=== PATIENT | male | born 1960 | race Caucasian/White ===

== ENCOUNTER 2020-04-22 15:12 | Emergency (ER) | payer MEDICARE, SELFPAY ==
[2020-04-22 15:14] VITALS: BP 133/92; PULSE 82; RESP 20; TEMP 37.3; O2SAT 98; BMI 44.6
--- NOTE | 2020-04-22 15:30 | XRR_ITS ---
PROCEDURE INFORMATION: Exam: XR Chest, 1 View Exam date and time: 04/22/2020 4:22 PM Age: 60 years old Clinical indication: Dyspnea and shortness of breath; Patient HX: C/O dyspnea, short of breath. HX of copd; Additional info: SOB TECHNIQUE: Imaging protocol: XR of the chest Views: 1 view. COMPARISON: No relevant prior studies available. FINDINGS: Lungs: No consolidative pulmonary infiltrate noted. Pleural space: No pleural effusion. No pneumothorax. Heart/Mediastinum: Mild cardiomegaly is noted. Bones/joints: Mild degenerative thoracic spine changes are noted. XR/XR chest 1V portable [id number] IMPRESSION: 1. Mild cardiomegaly is noted. 2. No consolidative pulmonary infiltrate noted. 3. No acute abnormality demonstrated.
--- NOTE | 2020-04-22 15:30 | ECG_ITS ---
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 Measurements Intervals [place] Rate: 75 P: 71 TN: 151 QRS: 85 QRSD: 86 T: 49 QT: 342 QTc: 383 Interpretive Statements SINUS RHYTHM POSSIBLE RIGHT VENTRICULAR CONDUCTION DELAY [RSR (QR) IN V1/V2] No previous ECG available for comparison Electronically Signed On 04-22-2020 22:23:52 ART HANDLER by Galilea Myers M.D. [id number]
--- NOTE | 2020-04-22 15:42 | W.ED.SOB ---
HPI - SOB/Dyspnea General: Chief Complaint: Shortness of Breath/Dyspnea Stated Complaint: SOB Time Seen by Provider: 04/22/20 15:31 Source: patient Mode of arrival: ambulatory Limitations: no limitations History of Present Illness: HPI Narrative: 60-year-old male with a history of COPD states he been having shortness of breath. Patient was sent here by his PCP from the clinic. He is on 5 L at home at baseline. He received a breathing treatment in route and states he feels back to baseline and has no complaints at this time. No known sick contacts. Denies any fever. He states that his nebulizer machine is broken at home. Associated symptoms: Deny abdominal pain, chest pain, fever(s), nausea or vomiting Review of Systems Const: Denies: fever(s), chills, body aches or change in appetite Eyes: Denies: blurry vision or eye discomfort ENMT: Denies: throat pain or dental pain Card: Denies: chest pain Resp: Reports: dyspnea GI: Denies: abdominal pain, nausea, vomiting or diarrhea : Denies: dysuria Musc: Denies: neck pain or back pain Skin/Breast: Denies: rash Neuro: Denies: headache(s) Psych: Denies: depression Michael/Lymph: Denies: easy bruising All/Imm: Denies: urticaria Physical Exam Const: COMMON NORMALS: no acute distress and patient oriented x3 GENERAL APPEARANCE: disheveled HENMT: COMMON NORMALS: normocephalic and atraumatic HEAD & SCALP: normocephalic and atraumatic Eye: COMMON NORMALS: Equal, round and reactive pupils present and EOMs intact bilaterally PUPIL: Yes Equal, round and reactive pupils present Neck/C-Spine: COMMON NORMALS: full ROM and supple Chest: COMMONS NORMALS: normal inspection of the chest and normal palpation of entire chest wall Resp: COMMON NORMALS: normal respiratory effort, No retractions and No use of accessory muscles AUSCULTATION: wheezes Cardio: COMMON NORMALS: regular rate, regular rhythm and No murmurs present (Cardio) RATE: regular rate RHYTHM: regular rhythm GI: COMMON NORMALS: Normal to inspection, nondistended, normoactive bowel sounds present, Soft to palpation, non-tender and no masses PALPATION: Yes Soft to palpation Extremity: COMMON NORMALS: normal to inspection and full ROM Neuro: COMMON NORMALS: patient oriented x3, moves all extremities and no focal motor deficits Psych: COMMON NORMALS: mental status grossly normal, Normal thought process present and cooperative THOUGHT PROCESS: Normal thought process present Skin: COMMON NORMALS: no rashes or lesions noted and no wounds GENERAL SKIN EXAM: no rashes or lesions noted Course Vital Signs: Vital signs: Vital Signs Temperature 99.1 F 04/22/20 15:14 Pulse Rate 88 04/22/20 16:06 Respiratory Rate 20 H 04/22/20 15:14 Blood Pressure 133/92 04/22/20 15:14 Pulse Oximetry 96 04/22/20 16:06 MDM - SOB/Dyspnea MDM Narrative: Medical decision making narrative: Patient presents with dyspnea that is chronic in nature. Patient's x-ray here is negative and his Covid and flu is negative as well. He felt much improved after breathing treatments. I informed him he needs to the prescription for a new breathing treatment machine from his PCP and I will write him for albuterol along with steroids. He is to follow-up with PCP and return if worsening. He understands and agrees to plan. Lab Data: Labs: Lab Results 04/22/20 04/22/20 04/22/20 Range/Units 16:02 16:02 16:25 WBC 12.6 H (4.0-10.0) 10^3/ uL RBC 4.13 (4.1-5.3) 10^6/u L Hgb 13.1 (11.7-16.6) g/dL Hct 42.7 (42.0-52.0) % MCV 103.4 H (80-94) fL MCH 31.7 (28.0-34.0) pg MCHC 30.7 (30.0-36.0) g/dL RDW 12.6 (12.1-15.1) % Plt Count 180 (130-400) 10^3/c mm MPV 10.6 H (7.4-10.4) fL Neut % (Auto) 76.8 % Lymph % (Auto) 15.0 % [place] % (Auto) 5.0 % Eos % (Auto) 2.6 % Baso % (Auto) 0.2 % Neut # (Auto) 9.68 H (1.8-7.7) 10^3/u L Lymph # (Auto) 1.9 (0.8-4.8) 10^3/u L [place] # (Auto) 0.6 (0.2-0.9) 10^3/u L Eos # (Auto) 0.3 (0.0-0.8) 10^3/u L Baso # (Auto) 0.0 (0.0-0.1) 10^3/u L Nucleated RBC % (a uto) 0 % Nucleated RBCs # 0.0 /100WBC Sodium 140 (136-145) mmol/L Potassium 5.0 (3.5-5.1) mmol/L Chloride 88 L (98-107) mmol/L Carbon Dioxide 43 H* (22-29) mmol/L Anion Gap 14.0 (5-19) BUN 18 (6-20) mg/dL Creatinine 0.8 (0.7-1.2) mg/dL GFR Calculation 99.3 (90-130) mL/min Glucose 157 H (65-115) mg/dL Calculated Osmolal ity 295 (285-295) mOsm/k g Lactic Acid 1.2 (0.5-2.2) mmol/L Calcium 10.0 (8.5-10.5) mg/dL Total Bilirubin 0.2 (0.15-1.2) mg/dL AST 21 (0-40) U/L ALT 29 (0-41) U/L Alkaline Phosphata se 103 (40-130) IU/L C-Reactive Protein 15.6 H (0.0-4.9) mg/L NT-Pro-B Natriuret Pep 5 (0-125) pg/mL Total Protein 8.3 (6.6-8.7) g/dL Albumin 4.6 (3.5-5.2) g/dL Globulin 3.7 (1.3-4.6) g/dL Influenza Type A A g (Negative) Influenza Type B A g (Negative) SARS-CoV-2 Ag (Rap id) (Negative) 04/22/20 04/22/20 Range/Units 16:25 16:25 WBC (4.0-10.0) 10^3/ uL RBC (4.1-5.3) 10^6/u L Hgb (11.7-16.6) g/dL Hct (42.0-52.0) % MCV (80-94) fL MCH (28.0-34.0) pg MCHC (30.0-36.0) g/dL RDW (12.1-15.1) % Plt Count (130-400) 10^3/c mm MPV (7.4-10.4) fL Neut % (Auto) % Lymph % (Auto) % [place] % (Auto) % Eos % (Auto) % Baso % (Auto) % Neut # (Auto) (1.8-7.7) 10^3/u L Lymph # (Auto) (0.8-4.8) 10^3/u L [place] # (Auto) (0.2-0.9) 10^3/u L Eos # (Auto) (0.0-0.8) 10^3/u L Baso # (Auto) (0.0-0.1) 10^3/u L Nucleated RBC % (a uto) % Nucleated RBCs # /100WBC Sodium (136-145) mmol/L Potassium (3.5-5.1) mmol/L Chloride (98-107) mmol/L Carbon Dioxide (22-29) mmol/L Anion Gap (5-19) BUN (6-20) mg/dL Creatinine (0.7-1.2) mg/dL GFR Calculation (90-130) mL/min Glucose (65-115) mg/dL Calculated Osmolal ity (285-295) mOsm/k g Lactic Acid (0.5-2.2) mmol/L Calcium (8.5-10.5) mg/dL Total Bilirubin (0.15-1.2) mg/dL AST (0-40) U/L ALT (0-41) U/L Alkaline Phosphata se (40-130) IU/L C-Reactive Protein (0.0-4.9) mg/L NT-Pro-B Natriuret Pep (0-125) pg/mL Total Protein (6.6-8.7) g/dL Albumin (3.5-5.2) g/dL Globulin (1.3-4.6) g/dL Influenza Type A A g Negative (Negative) Influenza Type B A g Negative (Negative) SARS-CoV-2 Ag (Rap id) Negative (Negative) Imaging Data^: CXR: Attestation: I personally reviewed and interpreted this imaging study as follows: Radiologist's impression: [address] [address] XRay Report Signed Patient: Satish Jaramillo Unit #: [id number] : 1960 Age/Sex: 60 / M ADM Date: 04/22/20 Loc: ER Room/Bed: Attending Dr: Ordering Provider/Ordering MD: Ronald Morton MD Date of Service: 04/22/20 Procedure(s): XR chest 1V portable [id number] Accession Number(s): [id number] Report Number: [id number] PROCEDURE INFORMATION: Exam: XR Chest, 1 View Exam date and time: 04/22/2020 4:22 PM Age: 60 years old Clinical indication: Dyspnea and shortness of breath; Patient HX: C/O dyspnea, short of breath. HX of copd; Additional info: SOB TECHNIQUE: Imaging protocol: XR of the chest Views: 1 view. COMPARISON: No relevant prior studies available. FINDINGS: Lungs: No consolidative pulmonary infiltrate noted. Pleural space: No pleural effusion. No pneumothorax. Heart/Mediastinum: Mild cardiomegaly is noted. Bones/joints: Mild degenerative thoracic spine changes are noted. XR/XR chest 1V portable [id number] IMPRESSION: 1. Mild cardiomegaly is noted. 2. No consolidative pulmonary infiltrate noted. 3. No acute abnormality demonstrated. EKG Data^: EKG 1: Attestation: I personally reviewed and interpreted this EKG as follows: EKG Interpretation Date: 04/22/20 EKG interpretation time: 15:47 Interpretation: nsr hr [address] or t wave abnormalities qrs 86 qtc 371 Discharge Plan Discharge Patient Disposition: Home Clinical Impression: Asthma with exacerbation Qualifiers: Asthma severity: unspecified severity Asthma persistence: unspecified Qualified Code(s): J45.901 - Unspecified asthma with (acute) exacerbation Condition: Stable Prescriptions: New prednisone 50 mg tablet 50 mg PO DAILY Qty: 5 RF: 0 albuterol sulfate 90 mcg/actuation HFA aerosol inhaler 2 inh INHALATION Q6H PRN (Reason: shortness of breath or wheezing) Qty: 8 RF: 0 No Action Multi-Vitamins Tablet 1 tab PO DAILY RF: 0 atorvastatin 20 mg tablet 20 mg PO DAILY RF: 0 cetirizine 10 mg tablet 10 mg PO DAILY RF: 0 metformin 1,000 mg tablet 1,000 mg PO BID RF: 0 Cinnamon 500 mg Capsule 500 mg PO DAILY RF: 0 Pomegranate 1 cap PO DAILY RF: 0 iron 1 tab PO DAILY RF: 0 Discharge Orders: Discharge ED (Routine); Ordered 04/22/20 Ordered By: Ronald Morton Discharge Diet: Advance as tolerated Discharge Activity: Resume usual activity Patient Instructions: Asthma (ED) Coding Level of Care Code ED Certified Legal Secretary Specialist for Alireza Fwd Exam Comprehensive
[2020-04-22 16:06] VITALS: PULSE 88; O2SAT 96
[2020-04-22 16:19] LABS: Basophils % 0.2 %; Eosinophils # 0.3 10^3/uL (0.0-0.8); Eosinophils % 2.6 %; Hematocrit 42.7 % (42.0-52.0); Hemoglobin 13.1 g/dL (11.7-16.6); Lymphocytes # 1.9 10^3/uL (0.8-4.8); Mean Corpuscular HGB Conc 30.7 g/dL (30.0-36.0); Mean Corpuscular Hemoglobin 31.7 pg (28.0-34.0); Mean Corpuscular Volume 103.4 fL (80-94); Mean Platelet Volume 10.6 fL (7.4-10.4); Monocytes # 0.6 10^3/uL (0.2-0.9); Neutrophils # 9.68 10^3/uL (1.8-7.7); Neutrophils % 76.8 %; Nucleated Red Blood Cells % 0 %; Platelet Count 180 10^3/cmm (130-400); Red Blood Count 4.13 10^6/uL (4.1-5.3); Red Cell Distribution Width 12.6 % (12.1-15.1); White Blood Count 12.6 10^3/uL (4.0-10.0)
[2020-04-22 16:55] LABS: Lactic Sepsis W/Reflex 1.2 mmol/L (0.5-2.2)
[2020-04-22 17:12] LABS: Alanine Aminotransferase 29 U/L (0-41); Albumin Level 4.6 g/dL (3.5-5.2); Alkaline Phosphatase 103 IU/L (40-130); Aspartate Amino Transferase 21 U/L (0-40); Blood Urea Nitrogen 18 mg/dL (6-20); C Reactive Protein 15.6 mg/L (0.0-4.9); Chloride 88 mmol/L (98-107); Globulin 3.7 g/dL (1.3-4.6); Glomerular Filtration Rate 99.3 mL/min (90-130); Glucose 157 mg/dL (65-115); NT Pro B Type Natriuretic Pept 5 pg/mL (0-125); Osmolality Calculated 295 mOsm/kg (285-295); Sodium 140 mmol/L (136-145); Total Bilirubin 0.2 mg/dL (0.15-1.2); Total Protein 8.3 g/dL (6.6-8.7)
[2020-04-22 17:18] LABS: Influenza A by IFA Negative (Negative); Influenza B by IFA Negative (Negative); SARS Covid-2 Antigen Negative (Negative)
[2020-04-22 17:21] LABS: Carbon Dioxide 43 mmol/L (22-29)
[2020-04-22 18:35] VITALS: PULSE 83; RESP 19; O2SAT 97
== END 2020-04-22 18:36 | disposition home or self-care (01) ==
PROVIDERS: Emergency Provider Emergency Medicine
DX: J45.901 Unspecified asthma with (acute) exacerbation (principal)
CPT/HCPCS: 12345; 71045; 80053; 83605; 83880; 85025; 86140; 87426; 87804; 93005; 96374; 99283; J2930

== ENCOUNTER → 2020-04-29 17:18 | Outpatient (BNVA) | payer MEDICARE, SELFPAY | PROVIDERS: Visit Provider Internal Medicine Critical Care Medicine | DX: Z20.828 Contact with and (suspected) exposure to other viral communicable diseases (principal) | CPT/HCPCS: 87635 ==

== ENCOUNTER 2020-05-05 14:17 | Outpatient (CLI) | payer MEDICARE, SELFPAY ==
--- NOTE | 2020-05-05 14:56 | PFTS_ITS ---
Date of Study:05/05/20 Date of Dictation: MECHANICS: Forced vital capacity (FVC) is reduced. Forced expiratory volume in one second (FEV1) is reduced. FEV1/FVC is reduced. FLOW VOLUME LOOP: Reduced flow at all lung volumes with significant scooping. LUNG VOLUMES: Total lung capacity (TLC) is normal. Residual volume (RV) is increased. DIFFUSING CAPACITY FOR CARBON MONOXIDE: Moderate reduced. INTERPRETATION: The postbronchodilator spirometry is consistent with severe airflow obstruction. There is no significant postbronchodilator response. The lung volumes are consistent with air trapping. Gas exchange (DLCO) is moderately reduced. MTDD
== END 2020-05-05 14:18 | disposition home or self-care (01) ==
LOC: RT 14:31
PROVIDERS: PCP Nurse Practitioner; Visit Provider Internal Medicine Critical Care Medicine
DX: J45.901 Unspecified asthma with (acute) exacerbation (principal)
CPT/HCPCS: 94060; 94726; 94729; J7611

== ENCOUNTER 2020-05-12 20:00 | Outpatient (CLI) | payer MEDICARE, SELFPAY | END 2020-05-12 20:01 | disposition home or self-care (01) | LOC: SLEEP 05-13 08:58 | PROVIDERS: PCP Nurse Practitioner; Visit Provider Internal Medicine Critical Care Medicine | DX: G47.33 Obstructive sleep apnea (adult) (pediatric) (principal) | CPT/HCPCS: 95811 ==

== ENCOUNTER 2020-06-16 09:38 | Outpatient (CLI) | payer MEDICARE, SELFPAY ==
[2020-06-16 09:50] VITALS: BMI 46.7
--- NOTE | 2020-06-16 09:51 | ECG_ITS ---
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 Interpretive Statements NAME OF STUDY: DOBUTAMINE SESTAMIBI STRESS TEST INDICATION: Chest Pain; Dyspnea on Exertion PROCEDURE: At the baseline, the blood pressure was 138/76 mmHg, oxygen saturation 93% with a heart rate of 67 bpm. The electrocardiogram showed normal sinus rhythm, normal axis with possible old septal infarct. The dobutamine was infused over a period of 7 minutes 20 seconds. The maximum heart rate obtained was 140 bpm(86% of the maximum predicted heart rate). The blood pressure at that time was 173/68 mmHg and oxygen saturation 95%. The patient did not have any chest pain or any significant electrocardiogram changes with the dobutamine infusion. The physical examination remained unchanged. No arrhythmias were seen on the monitor. Patient received atropine 0.5 mg IV 6 minutes 36 seconds into infusion. During the recovery phase, the patient did not have any specific symptoms. The blood pressure at the end of the recovery phase was 128/80 mmHg with a heart rate of 93 beats per minute and oxygen saturation 93%. Metoprolol 5 mg IV x1 was administered 2 minutes 10 seconds into recovery. CONCLUSION: 1. Normal EKG response to dobutamine infusion. 2. Normal blood pressure and heart rate response to dobutamine infusion. 3. Exercise capacity could not be assessed given pharmacological protocol. 4. Sestamibi/Sestamibi perfusion scan pending; see separate report. RESULTS TO CHERI RAMIREZ Electronically Signed On 06-18-2020 15:25:54 BULL DRIVER by Madie Lopez M.D. [id number]
--- NOTE | 2020-06-16 09:51 | NMCV_ITS ---
NM kaiden perf SPECT r/s* [id number] Satish Jaramillo Age: 60 Gender: M : 1960 Exam Date: 06/16/2020 11:27 Ordering Phys: Madie Lopez MD ([email or web address]) Technologist: DENA Field Exam Location: [facility] Indications: CHEST PAIN STRESS TEST Please see separate stress test report in [facility] for full findings IMAGE PROTOCOL Rest/Stress 1 Dobutamine Day Radiopharmaceutical Dose (mCi) Administration Site Administered by Rest: Tc-99m 11.0 IV DENA Field Sestamibi Stress:Tc-99m 33.0 IV DENA Amador Sestamibi Rest: 16-Jun-2020 60 Discovery 630 Stress: 16-Jun-2020 30 Discovery 630 Radiopharmaceutical was injected at 86supine position only as patient was unable to lay prone. SPECT RESULTS Technical Quality: Good Raw Data Analysis: Soft tissue attenuation Image Corrections: No attenuation or motion correction applied Summed Stress Score: 2 Summed Rest Score: 1 Summed Difference Score: 2 PERFUSION FINDINGS There is patchy tracer uptake throughout the myocardium with somewhat decreased tracer uptake in apical lateral wall on rest images and some reversibility noted in apical anterior and mid anterolateral wall on supine stress images. Interpretation limited by obesity with BMI over 44 kg/m2. FUNCTIONAL RESULTS (calculated via Gated SPECT) Stress Image LV EF (%): 49 Stress EDV (mL):152 TID: 1.16 Stress ESV (mL):77 FUNCTIONAL FINDINGS: The left ventricle is normal in size. Transient Ischemia Dilatation of 1.16. The left ventricular ejection fraction is mildly reduced with a value of 49%. There is mildly decreased wall thickening. No regional wall motion abnormality. IMPRESSIONS 1. Myocardial perfusion imaging is normal. Soft tissue attenuation and motion artifact noted in apical anterior and mid anterolateral cha. 2. The left ventricular ejection fraction is mildly reduced with a value of 49%. 3. There is mildly decreased wall thickening. No regional wall motion abnormality. 4. Transient ischemic dilation index of 1.16. This may represent subendocardial ischemia. Clinical correlation is advised. 5. Scan indicates low risk for cardiac events. Madie Lopez MD (Electronically Signed) Final Date: 20 June 2020 11:05 S
--- NOTE | 2020-06-16 12:38 | SUR.PREOP ---
Patient reports no pain or discomfort prior to the start of the procedure.
[2020-06-16] MEDS: sodium chloride 0.9% 250 ML 100 ML IV (12:39)
--- NOTE | 2020-06-16 12:40 | SUR.PREOP ---
IV FLUIDS SEE MAR. FLUIDS STARTED AT TIME OF STRESS TEST PER PROTOCOL.
[2020-06-16] MEDS: DOBUTtamine 200 MG in sodium chloride 0.9% 34 ML 20 MG IV (12:41)
[2020-06-16] MEDS: atropine 0.1 mg/mL Syr 10 mL 0.5 MG IVP (12:48)
[2020-06-16] MEDS: metoprolol tartrate 1 mg/1 mL SDV 5 mL 5 MG IV (12:51)
[2020-06-16 13:22] VITALS: BP 128/80; PULSE 93
== END 2020-06-16 09:39 | disposition home or self-care (01) ==
LOC: CDL 09:44
PROVIDERS: PCP Nurse Practitioner; Visit Provider Internal Medicine Cardiovascular Disease
DX: R07.9 Chest pain, unspecified (principal); R06.09 Other forms of dyspnea
CPT/HCPCS: 78452; 93017; A9500; J0461; J1250; J3490; J7050

== ENCOUNTER → 2020-12-03 10:12 | Outpatient (BNVA) | payer MEDICARE, SELFPAY | PROVIDERS: PCP Nurse Practitioner; Visit Provider Internal Medicine Critical Care Medicine | DX: J44.9 Chronic obstructive pulmonary disease, unspecified (principal); J96.11 Chronic respiratory failure with hypoxia; J96.12 Chronic respiratory failure with hypercapnia; G47.33 Obstructive sleep apnea (adult) (pediatric); I70.0 Atherosclerosis of aorta | CPT/HCPCS: 71046 ==

== ENCOUNTER 2023-08-26 11:59 | Outpatient (CLI) | payer MEDICARE, SELFPAY ==
--- NOTE | 2023-08-26 12:07 | CT_ITS ---
WS: [id number] Examination: CT abdomen pelvis w con* [id number] Reason for Exam: BLOATING Date: August 26, 2023 Comparison: None. DLP: 967.[address] scans at [facility] use at least one of these dose optimization techniques: automated e xposure control; mA and/or kV adjustment per patient size (includes targeted exams where dose is matc hed to clinical indication); or iterative reconstruction. Findings: The heart is not enlarged. There are mild linear chronic changes suspected in the bases. No pleural e ffusion is identified. There is hepatic steatosis. The liver is not grossly enlarged. The gallbladder is present. The portal vein is patent. The spleen is unremarkable. There is no adrenal mass. The kidneys are well-perfused. There is a 5 cm cyst on the left kidney. The re is no kidney stone or hydronephrosis. The pancreas is unremarkable. The aorta is not enlarged There is no small bowel distention. The appendix is unremarkable. There is stool throughout the colon . There is no free fluid. There is no free air. There is colonic diverticulosis which is dominant in the sigmoid region. There is wall thickening whi ch may be chronic change. I see no adjacent inflammatory disease. Small mesenteric lymph nodes are identified. There is a lymph node noted adjacent to the thick-walled sigmoid colon. The prostate is prominent in size. There is limited bladder wall thickening. Diffuse degenerative changes of the spine are identified. There is severe osteoarthritic change invol ving the right hip. Impression: There is no bowel obstruction. There is no free fluid or free air There is diverticulosis with thickening of the sigmoid colonic wall. If patient has not had a recent colonoscopy once should be considered to confirm chronic diverticulosis and not more aggressive álvarez es. Hepatic steatosis is identified. The gallbladder is contracted.
[2023-08-26] MEDS: iohexol 350 mg/mL 500 mL Btl (per mL) IV (13:37)
[2023-08-26] MEDS: iohexol 300 mg/mL 100 mL Btl PO (13:37)
== END 2023-08-26 12:00 | disposition home or self-care (01) ==
LOC: RAD 12:02
PROVIDERS: PCP Nurse Practitioner; Visit Provider Nurse Practitioner
DX: K59.00 Constipation, unspecified (principal); K57.30 Diverticulosis of large intestine without perforation or abscess without bleeding; K76.0 Fatty (change of) liver, not elsewhere classified
CPT/HCPCS: 74177; Q9967

== ENCOUNTER → 2023-09-29 15:00 | Outpatient (BNVA) | payer MEDICARE, SELFPAY | PROVIDERS: PCP Nurse Practitioner; Visit Provider Surgery | DX: K57.92 Diverticulitis of intestine, part unspecified, without perforation or abscess without bleeding (principal) | CPT/HCPCS: 99204 ==

== ENCOUNTER 2023-11-09 08:19 | Day surgery (SDC) | payer MEDICARE, SELFPAY ==
[2023-11-09 08:37] VITALS: BP 121/87; PULSE 101; RESP 18; TEMP 36.4; O2SAT 95
[2023-11-09] MEDS: sodium chloride 0.9% 1,000 ML 30 ML IV (08:50)
[2023-11-09 09:02] LABS: Glucose Point of Care 184 mg/dL (70-110)
--- NOTE | 2023-11-09 09:06 | ANES.PREANE2 ---
Pre-Anesthetic Assessment Height/Weight: Height 1.68 m Weight 108.862 kg Temp Pulse Resp BP Pulse Ox O2 Del Method O2 Flow Rate 97.5 F L 101 H 18 121/87 95 Nasal Cannula 6 11/09/23 08:37 11/09/23 08:37 11/09/23 08:37 11/09/23 08:37 11/09/23 08:37 11/09/23 08:37 11/09/23 08:37 Operation Date: 11/09/23 09:15 Proposed Procedures p Colonoscopy 62871, G0105, K57.92(Not Applicable) - Arden Hess DO Familial anesthetic complications: None Was Beta Ankit taken within 24 hours: N/A Was Clonidine taken within 24 hours: N/A Last intake: Intake Last Liquid Date 11/08/23 Last Liquid Time 23:30 Last Solid Date 11/07/23 Last Solid Time 19:00 Social No alcohol and No tobacco Exam alert, oriented x 3, clear to auscultation bilaterally and regular rate & rhythm Airway Mallampati: Class II Dentition: chipped (multiple chipped and loose - one bottom broken just yesterday) Pulmonary Chronic Obstructive Pulmonary Disease sarcoidosis on prednisone Anesthetic Plan ASA status: 3 Anesthesia: MAC Risk of > 500 ml blood loss (7ml/kg in children): No Other Pertinent Information patient states having some sinus drainage last few days Medications/Allergies Home Medications Medication Instructions Recorded Confirmed Last Taken Type acetaminophen 500 mg tablet 500 mg PO BID 04/24/20 11/08/23 11/08/23 History (Tylenol Extra Strength) albuterol sulfate 90 mcg/actuation 2 inh inhalation Q6H PRN shortness 04/24/20 11/08/23 11/07/23 Rx aerosol inhaler of breath or wheezing #8 grams guaifenesin 600 mg tablet, 400 mg PO Q12H PRN Congestion 06/26/20 11/08/23 11/08/23 History extended release 12 hr (Mucinex) levocetirizine 5 mg tablet (Xyzal) 5 mg PO DAILY 06/26/20 11/08/23 11/08/23 History prenat.vits,diane,lmo-qith-xedcx 1 tab PO DAILY 06/26/20 11/08/23 11/08/23 History furosemide 20 mg tablet (Lasix) 10 mg PO QAM 12/03/20 11/08/23 11/08/23 History meloxicam 7.5 mg tablet 7.5 mg PO BID 12/03/20 11/08/23 11/08/23 History atorvastatin 40 mg tablet 40 mg PO DAILY 11/08/23 11/08/23 11/08/23 History budesonide 160 mcg-glycopyr 9 2 inh inhalation BID 11/08/23 11/08/23 11/09/23 History mcg-formot 4.8 mcg/actuation HFA inhaler (Breztri Aerosphere) dapagliflozin propanediol 10 mg 10 mg PO DAILY 11/08/23 11/08/23 11/08/23 History tablet (Farxiga) gabapentin 300 mg capsule 300 mg PO DAILY 11/08/23 11/08/23 11/08/23 History ipratropium 0.5 mg-albuterol 3 mg 3 ml inhalation Q4H PRN Shortness 11/08/23 11/08/23 11/09/23 History (2.5 mg base)/3 mL nebulization Of Breath soln semaglutide 1 mg/dose (4 mg/3 mL) 1 mg SUBCUT .WEEKLY 11/08/23 11/08/23 11/02/23 History subcutaneous pen injector (Ozempic) Allergies Allergy/AdvReac Type Severity Reaction Status Date / Time tramadol Allergy ADR-Seizure Verified 11/08/23 10:39 Current Medications Generic Name Dose Route Start Last Admin Trade Name Freq PRN Reason Stop Dose Admin Sodium Chloride 1,000 mls @ 30 mls/hr 11/09/23 08:30 11/09/23 08:50 Sodium Chloride 0.9% IV 11/10/23 08:29 30 mls/hr .Q24H PHUONG Administration PFSH Anesthesia Medical History Diabetes Hyperlipidemia Allergies OPAL (obstructive sleep apnea) Family History Grandfather CAD (coronary artery disease) Diabetes Family/Other CAD (coronary artery disease) Diabetes Father CAD (coronary artery disease) Mother Cancer Tuberculosis Social History Smoking and tobacco/nicotine status: former use of tobacco/nicotine Quit status (tobacco/nicotine): has quit using Year quit tobacco: 2017 - 2PPD x 30 Years Second hand smoke exposure: No Alcohol intake: never Substance/Drug Use: never Lives independently: Yes Household members: none Marital status: / Current occupational status: disabled Do you think of yourself as: Straight/Heterosexual Current gender identity: Male Data Anesthesia Cardiac Studies: Sestamibi Stress Test (Cardiology) 06/16/20 Holter Monitor 04/25/20
--- NOTE | 2023-11-09 09:21 | PM.HP ---
Providers/Chief Complaint Primary Care Provider: FEDERICO Carias Chief Complaint: K57.92 History of Present Illness Satish Jaramillo is a 63 year old male Review of Systems General: Reports: 10 or more systems reviewed and unremarkable except in HPI and below Medications/Allergies Home Medications Medication Instructions Recorded Confirmed Last Taken Type acetaminophen 500 mg tablet 500 mg PO BID 04/24/20 11/08/23 11/08/23 History (Tylenol Extra Strength) albuterol sulfate 90 mcg/actuation 2 inh inhalation Q6H PRN shortness 04/24/20 11/08/23 11/07/23 Rx aerosol inhaler of breath or wheezing #8 grams guaifenesin 600 mg tablet, 400 mg PO Q12H PRN Congestion 06/26/20 11/08/23 11/08/23 History extended release 12 hr (Mucinex) levocetirizine 5 mg tablet (Xyzal) 5 mg PO DAILY 06/26/20 11/08/23 11/08/23 History prenat.vits,diane,gnm-ytje-gfcdt 1 tab PO DAILY 06/26/20 11/08/23 11/08/23 History furosemide 20 mg tablet (Lasix) 10 mg PO QAM 12/03/20 11/08/23 11/08/23 History meloxicam 7.5 mg tablet 7.5 mg PO BID 12/03/20 11/08/23 11/08/23 History atorvastatin 40 mg tablet 40 mg PO DAILY 11/08/23 11/08/23 11/08/23 History budesonide 160 mcg-glycopyr 9 2 inh inhalation BID 11/08/23 11/08/23 11/09/23 History mcg-formot 4.8 mcg/actuation HFA inhaler (Breztri Aerosphere) dapagliflozin propanediol 10 mg 10 mg PO DAILY 11/08/23 11/08/23 11/08/23 History tablet (Farxiga) gabapentin 300 mg capsule 300 mg PO DAILY 11/08/23 11/08/23 11/08/23 History ipratropium 0.5 mg-albuterol 3 mg 3 ml inhalation Q4H PRN Shortness 11/08/23 11/08/23 11/09/23 History (2.5 mg base)/3 mL nebulization Of Breath soln semaglutide 1 mg/dose (4 mg/3 mL) 1 mg SUBCUT .WEEKLY 11/08/23 11/08/23 11/02/23 History subcutaneous pen injector (Ozempic) Allergies Allergy/AdvReac Type Severity Reaction Status Date / Time tramadol Allergy ADR-Seizure Verified 11/08/23 10:39 PFSH Acute PFSH: Medical History Diabetes Hyperlipidemia Allergies OPAL (obstructive sleep apnea) Family History Grandfather CAD (coronary artery disease) Diabetes Family/Other CAD (coronary artery disease) Diabetes Father CAD (coronary artery disease) Mother Cancer Tuberculosis Social History Smoking and tobacco/nicotine status: former use of tobacco/nicotine Quit status (tobacco/nicotine): has quit using Year quit tobacco: 2017 - 2PPD x 30 Years Second hand smoke exposure: No Alcohol intake: never Substance/Drug Use: never Lives independently: Yes Household members: none Marital status: / Current occupational status: disabled Do you think of yourself as: Straight/Heterosexual Current gender identity: Male Vitals/I&O/Wt Last Vital Signs Temp 97.5 F L 11/09/23 08:37 Pulse 101 H 11/09/23 08:37 Resp 18 11/09/23 08:37 BP 121/87 11/09/23 08:37 Pulse Ox 95 11/09/23 08:37 O2 Del Method Nasal Cannula 11/09/23 08:37 O2 Flow Rate 6 11/09/23 08:37 Weight last 48 hrs Weight 240 lb A&P Assessment and plan (1) Diverticulitis: Plan Colonoscopy Attestations Medical Necessity Statement*: Home Coding Level of Care Code Acute Code for [facility] Fw Diagnoses Diverticulitis K57.92
--- NOTE | 2023-11-09 09:47 | ANE.PACU2 ---
Inpatient post-anesthesia follow up: Airway intact: Yes Vital signs: Temperature 97.5 F Pulse Rate 101 Respiratory Rate 18 Blood Pressure 121/87 Pulse Oximetry 95 Oxygen Delivery Me thod Nasal Cannula Oxygen Flow Rate 6 Fraction of Inspir ed Oxygen Hydration adequate: Yes Nausea and vomiting: No Pain level: 1 Mental status: Baseline
[2023-11-09 09:49] VITALS: BP 126/77; PULSE 90; RESP 18; O2SAT 95
[2023-11-09 10:00] VITALS: BP 130/71; PULSE 88; RESP 18; TEMP 36.1; O2SAT 95
[2023-11-09 10:03] VITALS: BP 141/82; PULSE 90; RESP 18; O2SAT 97
== END 2023-11-09 10:30 | disposition home or self-care (01) ==
PROVIDERS: PCP Nurse Practitioner; Visit Provider Surgery
PROC: 0DJD8ZZ Inspection of Lower Intestinal Tract, Via Natural or Artificial Opening Endoscopic (ICD-10-PCS; CPT 45378; principal; 2023-11-09 09:15)
DX: K57.92 Diverticulitis of intestine, part unspecified, without perforation or abscess without bleeding (principal); K57.30 Diverticulosis of large intestine without perforation or abscess without bleeding; K63.5 Polyp of colon; K62.1 Rectal polyp; J44.9 Chronic obstructive pulmonary disease, unspecified; Z79.52 Long term (current) use of systemic steroids; E11.9 Type 2 diabetes mellitus without complications; E78.5 Hyperlipidemia, unspecified; G47.33 Obstructive sleep apnea (adult) (pediatric); Z87.891 Personal history of nicotine dependence
CPT/HCPCS: 36416; 45385; 82962; 88305; J2704; J7030